=== PATIENT | male | born 1985 | race Caucasian/White ===

== ENCOUNTER → 2018-09-05 17:02 | Outpatient (CLI) | payer OTHER, SELFPAY ==
--- NOTE | 2018-09-05 17:10 | XR_ITS ---
EXAM: XR lumbar spine min 4V HISTORY: ITS.REASON: LUMBAGO OF LUMBAR REGION WITH SCIATICA ORDERING PHYSICIAN: Lucie Melendez PATIENT AGE: 33 years COMPARISON: None FINDINGS: There are mild degenerative changes in the lower thoracic spine Normal alignment. No fracture or dislocation. No lytic or blastic change. There is decrease in the L5-S1 disc space which may be seen with degenerative disc disease. Study is otherwise unremarkable. IMPRESSION: Mild degenerative changes lower thoracic spine with Decrease in the L5-S1 disc space suggesting degenerative disc disease otherwise negative
== END ==
PROVIDERS: PCP Nurse Practitioner Family; Visit Provider Nurse Practitioner Family
DX: M54.5 Low back pain (principal); M54.10 Radiculopathy, site unspecified
CPT/HCPCS: 72110

== ENCOUNTER 2019-02-28 08:30 | Outpatient (RCR) | payer OTHER, SELFPAY ==
--- NOTE | 2019-02-04 09:24 | HMH.RHREAS ---
Rehab Reassessment Rehab OP Re-assessment Start: 02/04/19 08:39 Freq: Status: Active Protocol: Document 02/04/19 08:39 SADIE (Rec: 02/04/19 09:24 SADIE [id number]) Electronically Signed By Robson Shannon, PT 02/04/19 08:39 Rehab Re-assessment Subjective Subjective Pt reports 70% improvement since start of care. Objective Objective Notes AROM: flx 64, all other planes WNL MMT: WNL Pain: 4/10 currently; 8/10 at worst over past week Neuro: DTR WNL; radicular symptoms in L5/S1 dermatome Assessment Progress Assessment Progressing as Expected Assessment Notes Rx has consisted of BLE stretching, extension protocol , manual dry needling, core stabilization and modalities prn. Overall pt is experiencing centralization of symptoms. Main complaint is a LBP with radicular symptoms to R L buttock. Functional limitations include any bending lifting activities. Patient goals met None Goals Not Met All Revised Goals NA Plan Plan Continue with POC Frequency of Therapy 2x/week Duration of therapy 4 weeks Time and Billing Re-Eval Time 15 Re-Eval Billing Units 1 PHYSICIAN CERTIFICATION: I certify the specified therapy services for [facility] are required, authorized, and reviewed every 30 days.
== END 2019-02-28 08:35 | disposition home or self-care (01) ==
LOC: PT 08:30
PROVIDERS: Visit Provider Family Medicine
DX: M54.16 Radiculopathy, lumbar region (principal)
CPT/HCPCS: 97010; 97012; 97014; 97033; 97035; 97110; 97140; 97163; 97164; G0283

== ENCOUNTER → 2020-08-11 08:23 | Outpatient (CLI) | payer OTHER, SELFPAY ==
--- NOTE | 2020-08-11 08:27 | MR_ITS ---
PROCEDURE: MR LUMBAR SPINE WO CON CLINICAL INDICATION: ACUTE LUMBAR RADICULOPATHY X2 MONTHS. STIFFNESS IN BACK. PHYSICAL THERAPY [id number]. LBP WORSE ON LT SIDE. PRIOR X-RAY 09-05-18 COMPARISON: No exams were available for comparison TECHNIQUE: Standard multiplanar multiecho sequences are performed without contrast. 3-D MIP and myelographic images are also rendered and reviewed FINDINGS: Normal alignment. The spinal cord ends at the L1 level. T12-L1: Degenerate disc disease. There is a small left paracentral disc protrusion with mild left lateral recess and foraminal narrowing. L1-L2: Mild degenerative disc disease L2-L3: Unremarkable. L3-L4: Unremarkable. L4-5: There was mild concentric bulging disc. L5-S1: Bulging disc with a medium sized broad-based central and left paracentral disc protrusion. This is causing compression upon the left S1 nerve root with left lateral recess and foraminal narrowing. There is mild right foraminal narrowing as well from the bulging disc. IMPRESSION: 1. Mild multilevel degenerative changes as detailed above. 2. Small left paracentral disc protrusion at T12-L1. 3. Medium-sized central left paracentral disc protrusion at L5-S1 causing impingement upon the left S1 nerve root. Dictated by: Sagar Lehman MD 08/13/2020 11:12 Sagar Lehman MD in [place] 08/13/2020 11:12
== END ==
PROVIDERS: PCP Family Medicine; Visit Provider Family Medicine
DX: M54.10 Radiculopathy, site unspecified (principal)
CPT/HCPCS: 72148; 76376

== ENCOUNTER 2020-09-07 08:00 | Outpatient (RCR) | payer OTHER, SELFPAY ==
--- NOTE | 2020-07-06 14:51 | HMH.PTOPEV ---
PT Outpatient Evaluation Rehab PT Outpatient Evaluation Start: 07/06/20 14:07 Freq: Status: Active Protocol: Document 07/06/20 14:08 KHUSHI (Rec: 07/06/20 14:51 KHUSHI [id number]) Electronically Signed By Jono Herring, PT 07/06/20 14:08 Outpatient Therapy Subjective History Subjective History Pt reports acute low back injury while attempting to lifting lawnmower ~2 weeks ago . Pt reports L sided LBP since injury, and intermittent L hamstring area pain (radicular s/s). Pt reports previous injury ~ 2 yrs ago, 'therapy helped with traction and neddling'. Chief Complaint Pain,Spasms,Stiff,Paresthesia, Weakness Symptom Type Ache,Dull,Stabbing,Burning Symptoms Relieved By Rest/Positioning,Heat,Ice, Prescription Meds Symptoms Aggravated By Bending/Stooping,Physical Activity,Twisting,Lifting Prior Functional Limitations None Current Functional Limitations Lifting,Standing,Walking, Bending/Stooping Symptom Description Constant but Variable Level of pain today (0-10) 4 Pain scale - at its best (0-10) 4 Pain scale - at its worst (0-10) 6 Lumbopelvic Eval Posture Thoracic Spine Posture Standing Position Neutral Lumbar Spine Posture Standing Position Flattened Assistive device Assistive Devices None / NA Gait Observation General Gait Pattern Observation Antalgic Gait Palapation tenderness left lumbar spinal tenderness Yes: 2/4 paraspinal tenderness Yes: 3/4 buttock tenderness Yes: 2/4 Lumbar/Sacral Palpation Findings Tenderness,Trigger Point, Muscle Guarding Accessory Movement L-spine Vertebrae Accessory Movements Left P/A [place] that Elicit Symptoms L3 left L4 left Range of Motion Lumbar Spine Active Flexion Range of 0-40 Motion (degrees) Lumbar Spine Active Extension Range of 0-15 Motion (degrees) Left Lumbar Spine Lateral Flexion Active 0-20 Range of Motion (degrees) Right Lumbar Spine Lateral Flexion 0-30 Active Range of Motion (degrees) Lumbar Spine ROM Limitations Soft Tissue Tightness,Pain Manual Muscle Test Left Knee Extension Strength Grade 5 Normal Knee Flexion Strength Grade 4- Good- Hip Flexion Strength Grade 4- Good- Extensor Hallucis Longus Strength Grade 5 Normal Ankle Dorsiflexion Strength Grade 4 Good
--- NOTE | 2020-08-05 10:49 | HMH.RHREAS ---
Rehab Reassessment Rehab OP Re-assessment Start: 08/05/20 10:11 Freq: Status: Active Protocol: Document 08/05/20 10:11 KHUSHI (Rec: 08/05/20 10:37 KHUSHI [id number]) Electronically Signed By Jono Herring, PT 08/05/20 10:11 Rehab Re-assessment Subjective Subjective Pt reports 0/10 LBP or LLE s/s this am, 'first time I've woke up feeling this good in a while', and feels 85% better overall since I eval Objective Objective Notes AROM: L-SPINE FLX 0-50, EXT 0- 20, B SB 0-35 MMT: L HIP FLX 4+/5, L HS 4+/5 , L QUAD 5/5, DF 4+/5, EHL 4+/ 5 TTP: 0-1/4 L PIRI Assessment Progress Assessment Progressing as Expected Assessment Notes PT W/IMPROVED STRENGTH, TTP, AND ROM Patient goals met STG'S 06/26 LTG'S 03/27 Goals Not Met LTG'S 02/25 Plan Plan PT TO CONT. W/SKILLED P.T. TO MAKE FURTHER IMPROVEMENTS IN ROM, STRENGTH, AND TTP TO ALLOW FOR OPTIMAL FUNCTION Frequency of Therapy 1-2X/WK Duration of therapy 3-4WKS Time and Billing Re-Eval Time 15 Re-Eval Billing Units 1 PHYSICIAN CERTIFICATION: I certify the specified therapy services for [facility] are required, authorized, and reviewed every 30 days.
== END 2020-09-07 08:05 | disposition home or self-care (01) ==
LOC: PT 08:00
PROVIDERS: PCP Family Medicine; Visit Provider Family Medicine
DX: M51.26 Other intervertebral disc displacement, lumbar region (principal)
CPT/HCPCS: 20560; 97010; 97012; 97014; 97035; 97110; 97140; 97163; 97164; G0283

== ENCOUNTER → 2022-08-06 09:22 | Outpatient (CLI) | payer OTHER, SELFPAY ==
[2022-08-06 09:59] LABS: Chol/HDL Ratio 5.9 (1-3.5); Cholesterol 229 mg/dl (140-200); Glucose,Fasting 107 mg/dl (74-100); HDL Cholesterol 39 mg/dl (40-60); Triglycerides 138 mg/dl (30-150); VLDL Cholesterol 28 mg/dL (0-40)
[2022-08-06 10:10] LABS: Direct LDL Cholesterol 148.54 mg/dL (100-129)
== END ==
PROVIDERS: PCP Family Medicine; Visit Provider Emergency Medicine
DX: R73.9 Hyperglycemia, unspecified (principal); E78.5 Hyperlipidemia, unspecified
CPT/HCPCS: 36415; 80061; 82947

== ENCOUNTER → 2023-07-20 11:06 | Outpatient (CLI) | payer OTHER, SELFPAY ==
[2023-07-20 11:31] LABS: Basophils # 0.1 K/mm3 (0-0.2); Eosinophils # 0.3 K/mm3 (0.0-0.4); Eosinophils % 4.6 % (0.1-12.0); Hematocrit 53.4 % (42.0-52.0); Hemoglobin 17.6 g/dL (14.1-18.0); Lymphocytes # 2.6 K/mm3 (0.7-4.5); Lymphocytes % 37.5 % (10-50); Mean Corpuscular HGB Conc 32.9 g/dL (31.8-35.4); Mean Corpuscular Hemoglobin 29.2 pg (27.0-31.2); Mean Corpuscular Volume 88.8 fl (80-94); Mean Platelet Volume 8.2 fl (7.4-10.4); Monocytes # 0.3 K/mm3 (0.1-1.0); Monocytes % 4.5 % (1.7-9.3); Neutrophils # 3.6 K/mm3 (1.8-7.8); Neutrophils % 51.5 % (37.0-80.0); Platelet Count 406 K/mm3 (142-424); Red Blood Count 6.02 M/mm3 (4.60-6.20); Red Cell Distribution Width 13.6 % (11.5-17.5)
[2023-07-20 12:52] LABS: Alanine Aminotransferase 59 U/L (12-78); Albumin Level 4.5 g/dl (3.5-5.0); Albumin/Globulin Ratio 1.3 (1.1-1.8); Alkaline Phosphatase 102 U/L (38-126); Anion Gap 17.4 mEq/L (5-15); Aspartate Amino Transferase 36 U/L (17-59); Bilirubin,Total 0.7 mg/dl (0.2-1.3); Blood Urea Nitrogen 15 mg/dl (9-20); Calcium 9.4 mg/dl (8.4-10.2); Carbon Dioxide 24 mmol/L (22.0-30.0); Chloride 104 mmol/L (98-107); Chol/HDL Ratio 7.4 (1-3.5); Cholesterol 236 mg/dl (140-200); Estimated Glomerular Filt Rate 108 ml/min (>60); GFR (African American) 131 ML/MIN (>60); Globulin 3.5 g/dL (1.3-3.2); Glucose 104 mg/dl (74-100); HDL Cholesterol 32 mg/dl (40-60); Potassium 4.4 mmoL/L (3.5-5.1); Sodium 141 mmol/L (136-145); Triglycerides 149 mg/dl (30-150); VLDL Cholesterol 30 mg/dL (0-40)
[2023-07-20 13:04] LABS: Direct LDL Cholesterol 156.17 mg/dL (100-129)
[2023-07-20 13:09] LABS: 25-OH Vitamin D, Total 29.8 ng/mL (30-100)
[2023-07-20 13:10] LABS: Free T4 (Free Thyroxine) 1.23 ng/dl (0.78-2.19)
[2023-07-20 13:22] LABS: Thyroid Stimulating Hormone 1.55 uIU/mL (0.465-4.68)
[2023-07-20 14:25] LABS: Hemoglobin A1C 5.4 % (4.0-6.0)
[2023-07-21 09:23] LABS: HCV Ab Non Reactive (Non Reactive); HIV Screen 4th Generation wRfx Non Reactive (Non Reactive)
== END ==
PROVIDERS: PCP Physician Assistant; Visit Provider Internal Medicine
DX: Z00.00 Encounter for general adult medical examination without abnormal findings (principal); Z11.59 Encounter for screening for other viral diseases; Z11.4 Encounter for screening for human immunodeficiency virus [HIV]; Z68.39 Body mass index [BMI] 39.0-39.9, adult
CPT/HCPCS: 36415; 80053; 80061; 82306; 83036; 84439; 84443; 85025; 86703; G0432

== ENCOUNTER 2024-01-09 07:14 | Outpatient (CLI) | payer BC, OTHER, SELFPAY ==
--- NOTE | 2024-01-09 07:29 | MR_ITS ---
FINAL REPORT CLINICAL HISTORY: left sided LOW BACK PAIN. intermittent left leg pain, numbness and tingling COMPARISON: 08/11/2020 FINDINGS: Multiplanar MR imaging of the lumbar spine was performed without contrast. On the sagittal T2-weighted images, there is abnormal decreased signal in the L5-S1 disc. The vertebrae are of normal height. The vertebral alignment is normal. L1-2: There is no significant canal stenosis or neural foraminal narrowing. L2-3: There is no significant canal stenosis or neural foraminal narrowing. L3-4: There is no significant canal stenosis or neural foraminal narrowing. L4-5: There is no significant canal stenosis or neural foraminal narrowing. L5-S1: There is a moderate to large left paracentral disc protrusion present, which produces moderate to severe left lateral recess stenosis, more evident than noted on the prior examination. Best seen on image #2 of series 6. IMPRESSION: L5-S1 moderate to large left paracentral protrusion producing moderate to severe left lateral recess stenosis. This is more evident than seen on the prior MRI of 2019. Reviewed, Interpreted and Dictated by Lionel Lockhart MD Transcribed by Neena Day Authenticated and [facility]
== END 2024-01-09 23:59 ==
LOC: RAD 07:15
PROVIDERS: PCP Internal Medicine; Visit Provider Chiropractor
DX: M51.17 Intervertebral disc disorders with radiculopathy, lumbosacral region (principal)
CPT/HCPCS: 72148; 76376